=== PATIENT | female | born 1995 | race Two or more races ===

== ENCOUNTER 2017-05-22 10:22 | Emergency (ER) | payer OTHER ==
[~2017-05-22] VITALS: Ht 157.5 cm; Wt 59.4 kg
== END 2017-05-22 11:49 | disposition home or self-care (01) ==
LOC: CFTX 10:22 → CED 10:22 → CFTX 11:05
DX: J02.0 Streptococcal pharyngitis (principal)
CPT/HCPCS: 87880; 96372; 99283; J0561